=== PATIENT | male | born 1970 | race Caucasian/White ===

== ENCOUNTER 2016-11-19 20:17 | Emergency (ER) | payer OTHER ==
[~2016-11-19 20:17] MED LIST: CIPROFLOXACIN500 M3 PO; KRISTALOSE PO; METOCLOPRAMIDE10 PO
[2016-11-19 22:04] VITALS: BP 154/94
== END 2016-11-19 22:04 | disposition other institution (70) ==
LOC: ED 20:17
DX: S83.91XA Sprain of unspecified site of right knee, initial encounter (principal); S53.401A Unspecified sprain of right elbow, initial encounter; V89.2XXA Person injured in unspecified motor-vehicle accident, traffic, initial encounter; Y93.02 Activity, running; Y92.89 Other specified places as the place of occurrence of the external cause; Y99.8 Other external cause status

== ENCOUNTER 2016-11-19 20:17 | Emergency (ER) | payer OTHER | END 2016-11-19 22:04 | disposition other institution (70) | LOC: ED 20:17 | DX: Z02.89 Encounter for other administrative examinations (principal) ==

== ENCOUNTER 2018-01-16 19:05 | Emergency (ER) | payer MEDICAID ==
[~2018-01-16] VITALS: Ht 170.2 cm; Wt 98.4 kg
[2018-01-16 19:09] VITALS: Ht 170.2 cm; Wt 98.4 kg
[2018-01-16 20:05] VITALS: BP 149/97
== END 2018-01-16 20:05 | disposition home or self-care (01) ==
LOC: ED 19:05
DX: G43.909 Migraine, unspecified, not intractable, without status migrainosus (principal); Z98.890 Other specified postprocedural states
CPT/HCPCS: J1885; J8597